=== PATIENT | male | born 1970 | race Two or more races ===

== ENCOUNTER 2017-02-25 17:59 | Emergency (ER) | payer SELFPAY ==
[~2017-02-25] VITALS: Ht 165.1 cm; Wt 80.0 kg
[2017-02-25 19:09] LABS: ASPARTATE AMINO TRANSFERASE 28 U/L (15-37); BLOOD UREA NITROGEN 12 mg/dL (7-18)
[2017-02-25 19:13] LABS: IS PT STATUS REG ER OR PRE ER? YES
[2017-02-25 19:46] VITALS: BP 111/81
[2017-02-25] MEDS ORDERED: MAALOX/HYOSCYAMINE/LIDOCAINE 45 ML BOTTLE ONE (20:05)
[2017-02-25] MEDS ORDERED: MAALOX/HYOSCYAMINE/LIDOCAINE 45 ML BOTTLE PO ONE (20:30)
== END 2017-02-25 20:42 | disposition home or self-care (01) ==
LOC: ED 19:05
DX: R07.89 Other chest pain (principal); R10.11 Right upper quadrant pain; Z87.891 Personal history of nicotine dependence
CPT/HCPCS: 36415; 71010; 76700; 80053; 83690; 84484; 85025; 93005; 99285

== ENCOUNTER 2017-04-01 21:29 | Emergency (ER) | payer OTHER ==
[~2017-04-01] VITALS: Ht 165.1 cm; Wt 77.3 kg
[2017-04-01 21:54] LABS: HEMATOCRIT 47.8 % (39.2-51.8); HEMOGLOBIN 15.8 g/dL (13.7-18.0)
[2017-04-01] MEDS ORDERED: AMPICILLIN/SULBACTAM 3 GM in SODIUM CHLORIDE 0.9% 100 ML IVPB ONE (22:00)
[2017-04-01] MEDS ORDERED: SODIUM CHLORIDE FLUSH 10ML SYR IVF ONE (22:00)
[2017-04-01 22:05] LABS: BLOOD UREA NITROGEN 14 mg/dL (7-18)
[2017-04-01] MEDS ORDERED: HYDROcodone/APAP 5/325 TABLET PO ONE (22:30)
[2017-04-01] MEDS ORDERED: HYDROcodone/APAP 5/325 TABLET ONE (22:36)
[2017-04-01 23:23] VITALS: BP 125/84
== END 2017-04-01 23:32 | disposition home or self-care (01) ==
LOC: ED 23:15
DX: L03.114 Cellulitis of left upper limb (principal)
CPT/HCPCS: 36415; 73130; 80048; 82040; 85025; 96365; 99285; J0295